=== PATIENT | male | born 1985 | race Two or more races ===

== ENCOUNTER 2020-11-13 13:09 | Emergency (ER) | payer SELFPAY ==
[~2020-11-13] VITALS: Ht 177.8 cm; Wt 99.8 kg
[2020-11-13 13:15] VITALS: BP 145/100
--- NOTE | 2020-11-13 13:15 | NUR ---
ED Nurse Note: Pt was brought in by ambulance from home. He is ax0x4. He is ambulatory and walks with a steady gait. he states that he feels general body aches and says he feels short of breath. His vitals are stable as documented on room air. No signs of distress noted.
--- NOTE | 2020-11-13 13:58 | Emergency Room Report ---
History of Present Illness General Chief Complaint: General Complaint Source: Patient Present Illness HPI 35-year-old male with no signal past medical history brought in by ambulance due to generalized body ache, fever and chills and congestion x3 days. Patient reports that he lives with someone who is positive for Covid. Appears to to be stable, with stable vital signs, afebrile, O2 sats 97%. In no apparent distress. Denies diarrhea, loss of taste and smell. Denies any past medical history. Denies chest pain or shortness of breath at this time. Has not taken medication for symptom relief. Allergies: Coded Allergies: No Known Allergies (Unverified , 11/13/20) COVID-19 Screening Contact w/high risk pt: Yes Experienced COVID-19 symptoms?: Yes COVID-19 Testing performed [employer]: Yes COVID-19 Screening: PUI COVID-19 COVID-19 Testing Source: waiting for result Patient History Past Medical History: see triage record Past Surgical History: none Pertinent Family History: none Immunizations: UTD Reviewed Nursing Documentation: PMH: Agreed; PSxH: Agreed Nursing Documentation-PMH Past Medical History: No Stated History Review of Systems All Other Systems: negative except mentioned in HPI Physical Exam Vital Signs Date Time Temp Pulse Resp B/P (MAP) Pulse Ox O2 Delivery O2 Flow Rate FiO2 11/13/20 13:05 99.0 112 18 160/100 (120) 99 Room Air Sp02 EP Interpretation: reviewed, normal General Appearance: no apparent distress, alert, GCS 15, non-toxic Head: normocephalic, atraumatic Eyes: bilateral eye normal inspection, bilateral eye PERRL ENT: hearing grossly normal, no angioedema, normal voice Neck: full range of motion, supple/symm/no masses Respiratory: no respiratory distress, no retraction, no accessory muscle use, speaking full sentences Cardiovascular #1: regular rate, rhythm, no edema Gastrointestinal: soft, non-distended Musculoskeletal: back normal Neurologic: alert, motor strength/tone normal, oriented x3, sensory intact, responsive, speech normal Psychiatric: judgement/insight normal, memory normal, mood/affect normal, no suicidal/homicidal ideation Skin: no rash Lymphatic: no adenopathy Medical Decision Making PA Attestation All diagnoses and treatment plans were reviewed and discussed with my supervising physician Dr. Danielle Diagnostic Impression: Primary Impression: Suspected 2019 novel coronavirus infection ER Course 35-year-old male with no signal past medical history brought in by ambulance due to generalized body ache, fever and chills and congestion x3 days. Patient reports that he lives with someone who is positive for Covid. Appears to to be stable, with stable vital signs, afebrile, O2 sats 97%. In no apparent distress. Denies diarrhea, loss of taste and smell. Denies any past medical history. Denies chest pain or shortness of breath at this time. Has not taken medication for symptom relief. Ddx considered but are not limited to: bronchitis, PNA, URI viral, bacterial bronchitis Vital signs: are WNL, pt. is afebrile H&PE are most consistent with: Suspected coronavirus ORDERS: Chest x-ray, azithromycin, prednisone ED INTERVENTIONS: None required at this time. DISCHARGE: At this time pt. is stable for d/c to home. Will provide printed patient care instructions, and any necessary prescriptions. Care plan and follow up instructions have been discussed with the patient prior to discharge. Advised patient to get tested for Covid, self quarantine for 14 days, symptom return to the emergency room. At this time patient cannot be tested for Covid emergency department due to low resources and access to rapid Covid testing. Advised patient to get tested for Covid as outpatient. Chest X-Ray Diagnostic Results Chest X-Ray Diagnostic Results : Chest X-Ray Ordered: Yes # of Views/Limited/Complete: 1 View Indication: Other EP Interpretation: Yes PA Xray: Interpretation reviewed, by supervising MD, and agrees with findings. Interpretation: no consolidation, no effusion, no pneumothorax Impression: No acute disease Electronically Signed by: Mike Man PA-C Last Vital Signs Date Time Temp Pulse Resp B/P (MAP) Pulse Ox O2 Delivery O2 Flow Rate FiO2 11/13/20 13:15 110 19 Room Air 11/13/20 13:15 99.1 145/100 95 Disposition: HOME, SELF-CARE Condition: Stable Scripts Prednisone* (PREDNISONE*) 20 Mg Tablet 40 MG ORAL DAILY for 5 Days, #10 TAB Prov: Mike Alston 11/13/20 Azithromycin* (ZITHROMAX*) 250 Mg Tablet 250 MG ORAL DAILY, #6 TAB 0 Refills Take two tables once daily for 1 day, then one tablet once daily for 4 days. Prov: Mike Alston 11/13/20 Referrals: NOT CHOSEN IPA/MD,REFERRING (PCP) Patient Instructions: Upper Respiratory Infection, Adult, [id number] Additional Instructions: Take medication as directed, follow primary care provider quarantine for use 2 weeks, I recommend you get tested for Covid as outpatient, if worsening symptoms return to the emergency room Mike Alston Nov 13, 2020 13:58
[2020-11-13] MEDS ORDERED: ZITHROMAX250 MG ORAL (13:59)
[2020-11-13] MEDS ORDERED: PREDNISONE20 MG ORAL (13:59)
[2020-11-13 14:04] VITALS: BP 140/90
--- NOTE | 2020-11-13 14:04 | NUR ---
ER DISCHARGE NOTE: Patient is cleared to be discharged per ERMD, pt is aox4, on room air, with stable vital signs. pt was given dc and prescription instructions, pt was able to verbalize understanding, pt id band removed. pt is able to ambulate with steady gait. pt took all belongings.
--- NOTE | 2020-11-13 16:39 | Diagnostic Imaging Report ---
Indication: Shortness of breath Technique: One view of the chest Comparison: none Findings: Lungs and pleural spaces are clear. Heart size is normal. Impression: No acute process
== END 2020-11-13 14:04 | disposition home or self-care (01) ==
LOC: EDBD 13:09 → EMR 13:35
DX: R50.9 Fever, unspecified (principal); R52 Pain, unspecified; Z20.828 Contact with and (suspected) exposure to other viral communicable diseases
CPT/HCPCS: 71045; 99283